=== PATIENT | female | born 1960 | race Caucasian/White ===

== ENCOUNTER 2017-10-08 18:56 | Emergency (ER) | payer MEDICARE, OTHER ==
[2017-10-08] MEDS ORDERED: NORMAL SALINE 1,000 ML IV ONE (19:21)
[2017-10-08] MEDS ORDERED: KETOROLAC TROMETHAMINE 30 MG/ML VIAL IV ONE (19:21)
[2017-10-08] MEDS ORDERED: KETOROLAC TROMETHAMINE 30 MG/ML VIAL ONE (19:25)
[2017-10-08] MEDS ORDERED: METOCLOPRAMIDE HCL 5 MG/ML VIAL IV ONE (19:43)
[2017-10-08] MEDS ORDERED: HYDROmorphone HCL 2 MG/ML VIAL IV ONE (19:43)
[2017-10-08 19:44] LABS: Hematocrit 35.5 % (37.0-47.0); Hemoglobin 11.5 gm/dL (12.5-16.0); Mean Cell Volume 87.7 fl (78-100); Mean Corpuscular Hemoglobin 28.4 pg (27-31); Mean Corpuscular Hgb Conc 32.4 g/dl (32-36); Mean Platelet Volume 9.4 fl (6.0-9.5); Neutrophil % 52.7 % (42-75.0); Platelet Count 354 K/mm3 (150-450); Red Blood Count 4.05 M/mm3 (4.2-5.4); White Blood Count 7.5 K/mm3 (4.0-10.5)
[2017-10-08] MEDS ORDERED: HYDROmorphone HCL 2 MG/ML VIAL ONE (19:45)
[2017-10-08] MEDS ORDERED: METOCLOPRAMIDE HCL 5 MG/ML VIAL ONE (19:45)
[2017-10-08 19:59] LABS: Albumin * 3.5 gm/dl (3.4-5.0); Anion Gap 12.1 mmol/L (6.8-13.8); BUN/Creatinine Ratio 6.9 (9.0-21.6); Bilirubin, Total 0.2 mg/dL (0.0-1.1); Ca. Corrected For Albumin 8.9 mg/dL (8.4-10.2); Calcium * 8.8 mg/dL (7.9-10.9); Carbon Dioxide 25.1 mmol/L (24-32.6); Potassium 3.2 mmol/L (3.4-4.6); Total Protein 7.5 gm/dL (6.2-8.2)
[2017-10-08 20:10] LABS: Urine Bilirubin Negative (NEGATIVE); Urine Blood Negative /ul (NEGATIVE); Urine Ketone Negative (NEGATIVE); Urine Nitrite Negative (NEGATIVE); Urine Protein Negative (NEGATIVE); Urine Urobilinogen Normal (NORMAL)
[2017-10-08 20:17] LABS: Urine Appearance Clear; Urine Bacteria TRACE; Urine Color Yellow; Urine RBC None Seen /hpf (0-5); Urine WBC TRACE /hpf (0-5)
[2017-10-08 20:21] LABS: Cocaine Ur Negative (NEGATIVE); Urine Barbiturate Negative (NEGATIVE); Urine Opiates Negative (NEGATIVE); Urine PCP Negative (NEGATIVE); Urine THC Negative (NEGATIVE)
[2017-10-08 20:22] LABS: Urine Benzodiazepines Positive (NEGATIVE)
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
== END 2017-10-08 21:26 | disposition home or self-care (01) ==
LOC: ER 18:56
DX: G89.4 Chronic pain syndrome; F15.10 Other stimulant abuse, uncomplicated